=== PATIENT | male | born 1930 | race Two or more races ===

== ENCOUNTER 2018-03-10 05:38 | Emergency (ER) | payer OTHER ==
[~2018-03-10] VITALS: Ht 177.8 cm; Wt 72.6 kg
[2018-03-10 05:56] LABS: BASOPHILS % (AUTO) 0.3 % (0.0-2.0); EOSINOPHILS % (AUTO) 0.1 % (0.0-6.0); HEMATOCRIT 46 % (39-51); MEAN CORPUSCULAR HGB CONC 33 g/dl (31.0-36.0); MEAN CORPUSCULAR VOLUME 97 fL (80-96); MONOCYTES # (AUTO) 0.9 /CMM (0.1-1.30); MONOCYTES % (AUTO) 7.9 % (2.0-12.0); NEUTROPHILS % (AUTO) 83.7 % (43.0-81.0); PLATELET COUNT (AUTO) 234 /CMM (150-450); WHITE BLOOD COUNT (AUTO) 11.9 K/uL (4.3-11.0)
--- NOTE | 2018-03-10 06:03 | NUR ---
PT TAKEN TO RADIOLOGY VIA QI
--- NOTE | 2018-03-10 06:06 | NUR ---
PT BIB RA. COMP OF "BEING MORE ALTERED THAN NORMAL". NO SOB NOTED. NO ACUTE DISTRESS. NO PAIN NOTED. AWAITING MD MCCORD.
[2018-03-10 06:10] LABS: CALCIUM, SERUM 9.5 mg/dL (8.5-10.1); CARBON DIOXIDE 24 mmol/L (21-32); CHLORIDE 103 mmol/L (98-107); CREATININE 1.3 mg/dL (0.6-1.3); GLUCOSE 110 mg/dL (74-106); POTASSIUM 4.3 mmol/L (3.5-5.1); SODIUM SERUM 140 mmol/L (136-145); UREA NITROGEN, BLOOD 35 mg/dL (7-18)
[2018-03-10 06:11] LABS: SERUM AMMONIA 43 umol/L (11-32)
[2018-03-10 06:16] LABS: ALANINE AMINOTRANSFERASE 36 U/L (12-78); ALBUMIN 3.4 g/dL (3.4-5.0); ALCOHOL, BLOOD < 3 mg/dL (0-0); ALKALINE PHOSPHATASE 109 U/L (46-116); ASPARTATE AMINOTRANSFERASE 92 U/L (15-37); BILIRUBIN,DIRECT 0.3 mg/dL (0.0-0.2); BILIRUBIN,TOTAL 1.2 mg/dL (0.2-1.0); TOTAL PROTEIN, SERUM 7.3 g/dL (6.4-8.2)
[2018-03-10 06:17] LABS: ACETAMINOPHEN < 2 ug/ml (10-30)
[2018-03-10 06:35] LABS: APPEARANCE,URINE CLOUDY (CLEAR); BILIRUBIN,URINE NEGATIVE (NEGATIVE); BLOOD, URINE 3+ Ery/uL (NEGATIVE); KETONES,URINE 2+ (NEGATIVE); LEUKOCYTE ESTERASE ,URINE NEGATIVE (NEGATIVE); NITRITE, URINE POSITIVE (NEGATIVE); PROTEIN,URINE 1+ mg/dl (NEGATIVE); UGLUCOSE NEGATIVE (NEGATIVE)
[2018-03-10] MEDS ORDERED: CEFTRIAXONE 1GM BAG (ER ONLY) 50 ML IV ONE ×2 (06:37→07:00)
[2018-03-10 06:38] LABS: COLOR,URINE DARK YELLOW (YELLOW)
[2018-03-10 06:44] LABS: BACTERIA,URINE Moderate /HPF (None Seen); SQUAMOUS EPITHELIAL CELL,UR Few /HPF (None Seen)
[2018-03-10] MEDS ORDERED: IV NS 0.9% 1,000 ML BAG IV ONE (07:00)
--- NOTE | 2018-03-10 07:00 | NUR ---
ADDENDUM: Intravenous End Time Documentation: 1) Normal saline 2.2 liter (IV-WO) : start time: 0700 AM; end time:0800 AM : IV site:RFA 18 Port #1 2) Normal saline 500 cc : start time: 0937 AM; end time:1007AM: IV site:RFA 18 Port #1
--- NOTE | 2018-03-10 07:09 | NUR ---
REPORT GIVEN TO BROOK CARROLL FOR EDA
--- NOTE | 2018-03-10 07:45 | NUR ---
PT RESTING CALMLY SON AT BEDSIDE UPDATED ON DOYLE TRANSFER ALL FLUIDS AND ANITIBIOTICS COMPLETED.
--- NOTE | 2018-03-10 08:10 | NUR ---
LACTIC ACID REPORTED TO BE 2.3 AT 0808 HOWEVER FLUIDS COMPLETED AT 0800 LABS DRAWN AT 0730 LACTIC ACID REORDERED. LAB NOTIFIED WELL
--- NOTE | 2018-03-10 09:22 | NUR ---
CALL FROM SAGINAW EPRPNOLA,WITH [place] INFO: GOING TO [facility],EDUARDA LUCERO,REPORT TO [phone],[facility] ETA AT 1000
--- NOTE | 2018-03-10 09:32 | NUR ---
CALLED FOR REPORT RN DISCHARGING ANOTHER PT WILL CALL BACK
--- NOTE | 2018-03-10 09:48 | NUR ---
[facility] CALLED BACK RN REPORT GIVEN TO NEHEMIAH PT ROOM ASSIGNMENT 4057-B ACCEPTING MD SHIVA CLEMENT 1000 FAMILY UPDATED AND SIGNED CONSENT TO TRANSFER.
[2018-03-10] MEDS ORDERED: IV NS 0.9% 500 ML BAG IV ONE (10:00)
--- NOTE | 2018-03-10 10:10 | NUR ---
[facility] HERE TO TRANSFER PT TO [facility] [place] RIG# [id number]
[2018-03-10 10:11] VITALS: BP 125/89
== END 2018-03-10 10:12 ==
LOC: ER 05:39
DX: S40.812A Abrasion of left upper arm, initial encounter (principal); S40.811A Abrasion of right upper arm, initial encounter; R41.82 Altered mental status, unspecified; N39.0 Urinary tract infection, site not specified; E87.2 Acidosis; E86.0 Dehydration; F03.90 Unspecified dementia, unspecified severity, without behavioral disturbance, psychotic disturbance, mood disturbance, and anxiety; R00.0 Tachycardia, unspecified; W18.39XA Other fall on same level, initial encounter; Y93.89 Activity, other specified; Y92.89 Other specified places as the place of occurrence of the external cause; Y99.8 Other external cause status
CPT/HCPCS: 36415; 70450-TC; 71045-TC; 80048-TC; 80076-TC; 80305; 81000-TC; 82140-TC; 82962-TC; 83605-TC; 84484-TC; 85025-TC; 85730-TC; 87040-TC; 87086-TC; G0480; J0696; J7030; J7050